=== PATIENT | female | born 1985 | race Caucasian/White ===

== ENCOUNTER 2017-07-18 06:44 | Inpatient (IN) | payer MEDICAID, OTHER ==
[2017-07-18] MEDS ORDERED: LACTATED RINGERS 1,000 ML ONE (07:24)
[2017-07-18] MEDS: LACTATED RINGERS 1,000 ML IV SCH ×2 (07:30→08:49)
[2017-07-18] MEDS ORDERED: PITOCin/NS 20 UNIT/1000ML DRIP 20 UNITS/1,000 ML BAG IV SCH ×2 (08:00→12:00)
[2017-07-18] MEDS ORDERED: ANCEF/STERILE WATER 2 GM/20 ML 2 GM/20 ML SYRINGE IV NR (08:00)
[2017-07-18] MEDS ORDERED: BICITRA PO NR (08:00)
[2017-07-18] MEDS ORDERED: REGLAN IV NR (08:00)
[2017-07-18] MEDS ORDERED: PEPCID IV NR (08:00)
[2017-07-18 08:29] LABS: Basophils % (Auto) 0.7 % (0.0-1.8); Eosinophils % (Auto) 1.2 % (0.0-4.3); Hematocrit 40.1 % (30.3-42.9); Mean Corpuscular HGB Conc 35 % (30-34); Mean Corpuscular Hemoglobin 31 pg (28-32); Mean Corpuscular Volume 89 fl (79-97); Platelet Count 186 K/mm3 (140-440); Red Cell Distribution Width 14.6 % (13.2-15.2); White Blood Count 5.7 K/mm3 (4.5-11.0)
[2017-07-18] MEDS ORDERED: REGLAN IV ONE (09:17)
[2017-07-18] MEDS ORDERED: PEPCID IV ONE (09:17)
[2017-07-18] MEDS ORDERED: DILAUDID IV PRN ×3 (09:41→11:36)
[2017-07-18] MEDS ORDERED: BENADRYL IV PRN ×2 (09:41→17:25)
--- NOTE | 2017-07-18 09:41 | Anesthesia Consultation ---
Anesthesia Consult and Med Hx Date of service: 07/18/17 - Airway Anesthetic Teeth Evaluation: Good (discoloration) ROM Head & Neck: Adequate Mental/Hyoid Distance: Adequate Mallampati Class: Class II Intubation Access Assessment: Probably Good - Pre-Operative Health Status ASA Pre-Surgery Classification: ASA2 Proposed Anesthetic Plan: Epidural, Spinal - Pulmonary Hx Asthma: No COPD: No Hx Pneumonia: No - Cardiovascular System Hx Hypertension: No - Central Nervous System Hx Seizures: No Hx Psychiatric Problems: No - Endocrine Hx Renal Disease: No Hx End Stage Renal Disease: No Hx Non-Insulin Dependent Diabetes: Yes (GDM) Hx Hypothyroidism: No Hx Hyperthyroidism: No - Hematic Hx Anemia: No Hx Sickle Cell Disease: No - Other Systems Hx Alcohol Use: No
--- NOTE | 2017-07-18 09:41 | Anesthesia Day of Surgery ---
Anesthesia Day of Surgery - Day of Surgery Patient Examined: Yes Patient H&P Reviewed: Yes Patient is NPO: Yes
--- NOTE | 2017-07-18 09:50 | History and Physical Report ---
History of Present Illness Date of examination: 07/18/17 Date of admission: 07/18/17 06:44 Chief complaint: at 39 weeks and 3 days for elective repeat C/section. History of present illness: Patient is 31 year old , EDC 07/22/17 who is at 39 weeks an 3 days who is admitted fpr elective repeat C/section. She denies any contractions, fluid leakage or bleeding per vagina. She reported good movement. Past History - Obstetrical History : 2 Medications and Allergies Allergies Allergy/AdvReac Type Severity Reaction Status Date / Time No Known Allergies Allergy Unverified 02/21/15 23:51 Home Medications Medication Instructions Recorded Confirmed Last Taken Type Tablet 1 tab PO DAILY 02/21/15 02/23/15 02/21/15 08:00 History 1 tab Ibuprofen [Motrin 800 MG tab] 800 mg PO Q8H PRN #90 tablet 02/23/15 Unknown Rx oxyCODONE /ACETAMINOPHEN [Percocet 1 tab PO Q6HR PRN #30 tablet 02/23/15 Unknown Rx 5/325 mg] Active Meds: Active Medications Citric Acid/Sodium Citrate (Bicitra) 30 ml PO ONCE NR Stop: 07/18/17 19:00 Last Admin: 07/18/17 09:31 Dose: 30 ml Citric Acid/Sodium Citrate (Bicitra) 30 ml PO ONCE ONE Stop: 07/18/17 09:18 Diphenhydramine HCl (Benadryl) 12.5 mg IV Q2H PRN PRN Reason: Itching Famotidine (Pepcid) 20 mg IV ONCE NR Stop: 07/18/17 19:00 Last Admin: 07/18/17 09:29 Dose: 20 mg Famotidine (Pepcid) 20 mg IV ONCE ONE Stop: 07/18/17 09:18 Hydromorphone HCl (Dilaudid) 0.5 mg IV Q4H PRN PRN Reason: breakthrough pain > 7/10 Cefazolin Sodium (Ancef/Sterile Water 2 Gm/20 Ml) 2 gm in 20 mls @ 80 mls/hr IV PREOP NR PRN Reason: Protocol Stop: 07/18/17 19:00 Lactated Ringer's (Lactated Ringers) 1,000 mls @ 2,250 mls/hr IV PREOP LITZY Stop: 07/19/17 08:27 Last Admin: 07/18/17 08:49 Dose: 2,250 mls/hr Oxytocin/Sodium Chloride (Pitocin/Ns 20 Unit/1000ml Drip) 20 units in 1,000 mls @ 0 mls/hr IV TITR LITZY PRN Reason: As Directed Lactated Ringer's (Lactated Ringers) 1,000 mls @ 2,250 mls/hr IV PREOP LITZY Stop: 07/19/17 10:27 Ketorolac Tromethamine (Toradol) 30 mg IV Q6H PRN PRN Reason: Pain, Moderate (4-6) Stop: 07/23/17 09:41 Metoclopramide HCl (Reglan) 10 mg IV ONCE NR Stop: 07/18/17 19:00 Metoclopramide HCl (Reglan) 10 mg IV ONCE ONE Stop: 07/18/17 09:18 Naloxone HCl (Narcan 0.4 Mg/1 Ml) 0.2 mg IV Q2MIN PRN PRN Reason: Res Rate </= 8 or 02 SAT < 92% Ondansetron HCl (Zofran) 4 mg IV Q8H PRN PRN Reason: Nausea And Vomiting Promethazine HCl (Phenergan) 25 mg MS Q6H PRN PRN Reason: Nausea And Vomiting Sodium Chloride (Sodium Chloride Flush Syringe 10 Ml) 10 ml IV PRN NR - Vital Signs Vital signs: Vital Signs Temp Resp 97.7 F 20 07/18/17 07:56 07/18/17 07:56 Temp Pulse Resp BP Pulse Ox 97.7 F 71 18 106/71 07/18/17 07:56 07/18/17 08:55 07/18/17 08:51 07/18/17 08:55 - Physical Exam Cardiovascular: Normal S1, Normal S2 Lungs: Positive: Clear to auscultation Vulva: both: normal Deep Tendon Reflex Grade: Normal +2 - Obstetrical FHR: category 1 Uterine Contraction Monitor Mode: External Uterine Contraction Pattern: Absent Results Result Diagrams: 07/18/17 07:15 Abnormal lab results 07/18/17 Range/Units 07:15 MCHC 35 H (30-34) % All other labs normal. Assessment and Plan - Patient Problems (1) 39 weeks gestation of Current Visit: Yes Status: Acute Plan to address problem: Admit to labor Floor. (2) Previous section Current Visit: Yes Status: Acute Plan to address problem: Admit to labor floor. Patient wants elective repeat C/section. and toco monitoring Labs sent. Keep NPO (3) Patient declines vaginal after section () Current Visit: Yes Status: Acute Plan to address problem: Patient wants elective repeat C/section. Risks, benefits, and alternatives of the procedure were discussed in detail with the patient which included but not limited to the risks of infection, hemorrhage requiring blood transfusion, injury to the bowel, bladder, and blood vessels. The patient expressed understanding, her questions were answered, she gave her informed consent.
[2017-07-18] MEDS ORDERED: MORPHINE ONE (09:53)
[2017-07-18] MEDS ORDERED: LACTATED RINGERS 1,000 ML IV SCH ×2 (10:00→18:00)
[2017-07-18] MEDS ORDERED: NACL 0.9% IR ONE (10:36)
[2017-07-18] MEDS ORDERED: WATER FOR IRRIG STERILE IR ONE (10:36)
[2017-07-18] MEDS ORDERED: METHERGINE IM ONE ×3 (10:53→12:00)
[2017-07-18] MEDS: HEMABATE IM ONE (11:04)
[2017-07-18] MEDS ORDERED: ANCEF ONE (11:20)
[2017-07-18] MEDS ORDERED: NEO SYNEPHRINE/NS Syringe(OR USE) IV ONE (11:30)
[2017-07-18] MEDS ORDERED: SODIUM CHLORIDE FLUSH SYRINGE 10 ML IV PRN (11:30)
[2017-07-18] MEDS ORDERED: PHENERGAN PR PRN (11:30)
[2017-07-18] MEDS ORDERED: TORADOL IV PRN ×2 (11:36→12:00)
[2017-07-18] MEDS ORDERED: ZOFRAN IV PRN ×2 (11:36→12:00)
[2017-07-18] MEDS ORDERED: TYLENOL PO PRN (11:36)
[2017-07-18] MEDS ORDERED: NARCAN 0.4 MG/1 ML IV PRN ×2 (11:36→12:00)
[2017-07-18] MEDS ORDERED: TUCKS PAD TP PRN (11:36)
[2017-07-18] MEDS ORDERED: NACL 0.9% 1000 ML 1,000 ML ONE (11:38)
--- NOTE | 2017-07-18 11:57 | Operative Report ---
Operative Report Operative Report: Preoperative diagnosis: 1. SIUP at 39 weeks and 3 days gestation, not in labor. 2. Previous . 3. Refused . Postop diagnosis: 1. Same as preop diagnosis. 2. Omental adhesions to the anterior uterine serosa and fascia. Procedure: 1. Repeat low-transverse section. 2. Lysis of omental adhesions from the anterior uterus and fascia. Surgeon: Dr. Arias. Rn Occupational Health: none. Anesthesia: Spinal/Epidural. Complications: Intraoperative uterine atony. EBL: 900 cc IV cc Urine: 300 cc clear. Operative findings: 1. Omental adhesions to the anterior uterine serosa and fascia. 2 Female found in an DANIA position, delivered at 10:43 AM, Apgars 8 and 9 at 1 and 5 minutes respectively, weight 7 lbs. 9 oz. 3. Intraoperative uterine atony. Procedure details: Risks, benefits, and alternatives of the procedure were discussed in detail with the patient which included but not limited to the risk of infection, hemorrhage requiring blood transfusion, and injury to the bowel or bladder and blood vessels. The patient expressed understanding, her questions were answered , and she gave her informed consent. The patient was taken to the operating room with an IV fluid infusing Ringers lactate. In the operating room, she was placed in a sitting position and given spinal anesthesia. Then, she was placed in the dorsal supine position with a leftward tilt. Painter catheter and Venodyne boots were placed. The abdomen was washed and she was prepared and draped in usual sterile fashion. After confirming adequate spinal anesthesia, a Pfannenstiel skin incision was made at the level of the previous scar which was about 2 cm above the pubic symphysis using the scalpel. This incision was carried down to the underlying fascia using the Bovie. The fascia was opened bilaterally in a curvilinear fashion using the Bovie. 2 straight Kocker clamps were used to grasp the upper edge of the fascia from which the underlying rectus abdominis muscle was dissected off using the Bovie. A similar procedure was done with the lower edge of the fascia to dissect the underlying rectus abdominis muscle. The muscle was bluntly from the midline by pulling, the parietal peritoneum was entered sharply using Metzenbaum scissors. A quick survey of the anatomy revealed adhesions of the omentum to the anterior fascia and anterior uterine segment. Lysis of adhesions was performed. A bladder flap was created. Jhoan O' retractor was placed at the incision for proper visualization. Then, a low transverse incision was made in the lower uterine segment using the scalpel then extended bilaterally in a curvilinear fashion using bandage scissors. The amniotic sac was ruptured. There was copious amount of clear amniotic fluid. The infant was found in an ADNIA position. The head was delivered atraumatically and bulb suction of the mouth and nose was performed. This was followed by delivery of the shoulders and the rest of the body atraumatically. The infant was a female delivered at 10:43 AM. The cord was clamped 2 and cut and the was handed off to the waiting offal roller. Cord blood was collected. The placenta was removed manually and it was complete with a three-vessel cord. There was uterine atony. Uterine massage was performed followed by IM Methergine and myometrial Hemabate. The uterine incision was repaired in a running locked fashion using 0 Vicryl sutures. A second layer of imbrication was placed. The gutters were cleaned of clots and debris using dry lap sponges. After confirming adequate hemostasis, the instruments were removed from the abdominal cavity. The rectus muscle was reapproximated with interrupted stitches of 0 Vicryl. The fascia was closed in a running fashion using 0 Vicryl sutures. The skin was closed with vic. Sterile dressing was placed. The counts of laps, needles, sponges, and instruments were correct 2. The patient tolerated the procedure well. She was taken to the recovery room in a stable condition.
[2017-07-18] MEDS ORDERED: BICITRA PO ONE (12:00)
[2017-07-18] MEDS ORDERED: HEMABATE IM ONE (12:00)
[2017-07-18] MEDS ORDERED: SODIUM CHLORIDE FLUSH SYRINGE 10 ML IV NR (12:00)
--- NOTE | 2017-07-18 13:25 | Post Anesthesia Evaluation ---
- Post Anesthesia Evaluation Patient Participated: Yes Airway Patent: Yes Stable Respiratory Function: Yes Nausea/Vomiting: No Temp > 96.8F: Yes Pain Manageable: Yes Adequeate Hydration: Yes Anesthesia Complications: No Block Receding Appropriately: Yes Patient on Ventilator: No
[2017-07-18 13:42] LABS: Basophils % (Auto) 0.6 % (0.0-1.8); Eosinophils % (Auto) 0.3 % (0.0-4.3); Hematocrit 40.3 % (30.3-42.9); Hemoglobin 13.6 gm/dl (10.1-14.3); Mean Corpuscular HGB Conc 34 % (30-34); Mean Corpuscular Hemoglobin 30 pg (28-32); Mean Corpuscular Volume 89 fl (79-97); Platelet Count 186 K/mm3 (140-440); Red Blood Count 4.51 M/mm3 (3.65-5.03); Red Cell Distribution Width 14.7 % (13.2-15.2); White Blood Count 10.9 K/mm3 (4.5-11.0)
[2017-07-19 00:41] LABS: Hematocrit 36.4 % (30.3-42.9); Hemoglobin 12.4 gm/dl (10.1-14.3)
[2017-07-19] MEDS: MOTRIN PO PRN ×2 (10:54→20:34)
[2017-07-19] MEDS: PERCOCET 5/325 PO PRN (10:54)
[2017-07-19] MEDS ORDERED: SENOKOT PO PRN (11:36)
--- NOTE | 2017-07-19 15:06 | Progress Note ---
Assessment and Plan - Patient Problems (1) 39 weeks gestation of Current Visit: Yes Status: Acute (2) delivery delivered Current Visit: Yes Status: Acute Plan to address problem: Routine post op order. Encourage ambulation. Subjective - Subjective Date of service: 07/19/17 Principal diagnosis: S/P repeat C/section Interval history: Patient is S/P repeat C/section, POD #1. She denies any complaint. She has been ambulating and tolerating regular diet well. She passed flatus. Objective - Vital Signs Latest vital signs: Vital Signs Temp Pulse Resp BP Pulse Ox 07/19/17 12:50 98.5 F 70 18 94/58 07/19/17 08:50 99.2 F 85 22 92/53 07/18/17 22:29 99 F 83 20 107/58 07/18/17 16:58 97.7 F 81 18 107/58 96 Intake and Output 07/18/17 07/19/17 07/19/17 23:59 07:59 15:59 Intake Total 840 480 240 Output Total 400 1600 Balance 440 -1120 240 Intake: Oral 480 480 240 Intake, Free Water 360 Output: Urine 400 1600 Indwelling Catheter 400 900 Void 700 Other: Total, Intake Amount 480 480 120 Total, Output Amount 400 700 # Voids Void 1 1 # Bowel Movements 0 - Exam Cardiovascular: Present: Normal S1, Normal S2 Lungs: Present: Clear to auscultation Deep Tendon Reflex Grade: Normal +2
[2017-07-20] MEDS: MOTRIN PO PRN ×2 (04:09→12:20)
[2017-07-20] MEDS: PERCOCET 5/325 PO PRN ×2 (04:10→12:18)
[2017-07-20] MEDS ORDERED: BOOSTRIX IM ONE (06:00)
--- NOTE | 2017-07-20 10:27 | Progress Note ---
Assessment and Plan A: POD #2 Stable P: Follow Routine PostOp Orders D/C home today per patient requerst RTO in One Week Subjective - Subjective Date of service: 07/20/17 Principal diagnosis: S/P repeat C/section Patient reports: appetite normal, voiding normally, pain well controlled, flatus , ambulating normally [place]: doing well Objective - Vital Signs Latest vital signs: Vital Signs Temp Pulse Resp BP Pulse Ox 07/20/17 09:07 98.4 F 72 20 97/63 98 07/20/17 01:04 98.5 F 86 18 96/53 07/19/17 16:50 98.7 F 81 18 87/57 07/19/17 12:50 98.5 F 70 18 94/58 Intake and Output 07/19/17 07/20/17 07/20/17 22:59 06:59 14:59 Intake Total 120 360 Balance 120 360 Intake: Oral 120 Intake, Free Water 360 Other: Total, Intake Amount 120 Voiding Method Toilet # Voids Void 1 2 - Exam Breasts: Present: normal Cardiovascular: Present: Regular rate Lungs: Present: Clear to auscultation, Normal air movement Abdomen: Present: normal appearance, soft, normal bowel sounds Uterus: Present: normal, firm, fundal height below umbilicus Extremities: Present: normal Incision: Present: normal, dry, intact
--- NOTE | 2017-07-20 10:28 | Discharge Summary ---
Providers - Providers Date of Admission: 07/18/17 06:44 Date of discharge: 07/20/17 Attending physician: JACKELYN GE MD Primary care physician: JACKELYN GE MD Hospitalization Reason for admission: section Delivery: Procedure: repeat low transverse Episiotomy: none Laceration: none Incision: normal, dry, intact Other procedures: none complications: none Discharge diagnosis: IUP at term delivered [place] baby: female Condition at discharge: Good Disposition: DC-[id number] TO HOME OR SELFCARE Plan - Provider Discharge Summary Activity: routine, no sex for 6 weeks, no heavy lifting 4 weeks, no strenuous exercise Diet: routine Instructions: routine Additional instructions: [] Smoking cessation referral if applicable(refer to patient education folder for contact #) [] Refer to [facility]'s [facility] Booklet Call your doctor immediately for: * Fever > 100.5 * Heavy vaginal bleeding ( >1 pad per hour) * Severe persistent headache * Shortness of breath * Reddened, hot, painful area to leg or breast * Drainage or odor from incision. * Keep incision clean and dry at all times and follow doctor's instructions regarding bathing/showering - Follow up plan Follow up: JACKELYN GE MD [Primary Care Provider] - 7 Days
[2017-07-20 11:41] VITALS: BP 102/63
[2017-07-20] MEDS ORDERED: Fluarix Quad 2017-2018(36 MOS+ IM ONE (13:15)
== END 2017-07-20 13:45 | disposition home or self-care (01) | DRG 766 ==
LOC: APU 06:44 → OB 13:01
PROVIDERS: ADMIT Obstetrics & Gynecology; ATTEND Obstetrics & Gynecology
PROC: 10D00Z1 Extraction of Products of Conception, Low, Open Approach (ICD-10-PCS; principal; 2017-07-18)
PROC: 3E0234Z Introduction of Serum, Toxoid and Vaccine into Muscle, Percutaneous Approach (ICD-10-PCS; 2017-07-20)
DX: O34.211 Maternal care for low transverse scar from previous cesarean delivery (principal); O24.429 Gestational diabetes mellitus in childbirth, unspecified control; Z3A.39 39 weeks gestation of pregnancy; Z37.0 Single live birth; Z23 Encounter for immunization
CPT/HCPCS: 36415; 82962; 85014; 85018; 85025; 86850; 86900; 86901; 90471; 90686; 90715; 99211; G0463; J0690; J1200; J1885; J2210; J2270; J2370; J2405; J2590; J2765; J7030; J7120